=== PATIENT | female | born 1970 | race Caucasian/White ===

== ENCOUNTER 2020-11-29 04:19 | Day surgery (SDC) | payer OTHER ==
[2020-11-26 10:35] VITALS: BMI 25.6
[2020-11-29] MEDS ORDERED: PROPOFOL 20 ML ONE (11:44)
[2020-11-29] MEDS ORDERED: MIDAZOLAM HCL 2 MG/2 ML SINGLE DOSE VIAL ONE (11:44)
[2020-11-29 14:08] VITALS: TEMP 97.9
[2020-11-29 14:46] VITALS: BP 107/76; PULSE 60
[2020-11-29] MEDS ORDERED: ACETAMINOPHEN 325 MG TABLET (FP) PO PRN (15:06)
[2020-11-29] MEDS ORDERED: ONDANSETRON 4 MG/2 ML VIAL IVPUSH PRN (15:06)
[2020-11-29] MEDS ORDERED: LACTATED RINGERS SOLUTION 1,000 ML IV SCH (15:15)
== END 2020-11-29 15:57 | disposition home or self-care (01) ==
LOC: JASU-SURG 04:19
PROVIDERS: ATTEND Urology
PROC: 0TF3XZZ Fragmentation in Right Kidney Pelvis, External Approach (ICD-10-PCS; principal; 2020-11-29 12:00)
DX: N20.0 Calculus of kidney (principal)
CPT/HCPCS: 81025

== ENCOUNTER 2020-12-13 04:55 | Day surgery (SDC) | payer OTHER ==
[2020-12-10 08:31] VITALS: BMI 26.2
[2020-12-13] MEDS ORDERED: MIDAZOLAM HCL 2 MG/2 ML SINGLE DOSE VIAL ONE (15:12)
[2020-12-13] MEDS ORDERED: PROPOFOL 20 ML ONE (15:12)
[2020-12-13] MEDS ORDERED: ACETAMINOPHEN 325 MG TABLET (FP) PO PRN (15:43)
[2020-12-13] MEDS ORDERED: oxyCODONE HCL 5 MG TABLET PO PRN (15:43)
[2020-12-13] MEDS ORDERED: ONDANSETRON 4 MG/2 ML VIAL IVPUSH PRN (15:43)
[2020-12-13] MEDS ORDERED: LACTATED RINGERS SOLUTION 1,000 ML IV SCH (15:45)
[2020-12-13 17:42] VITALS: BP 130/84; PULSE 72; TEMP 98
== END 2020-12-13 17:10 | disposition home or self-care (01) ==
LOC: JASU-SURG 04:55
PROVIDERS: ATTEND Urology
PROC: 0TF4XZZ Fragmentation in Left Kidney Pelvis, External Approach (ICD-10-PCS; principal; 2020-12-13 13:00)
DX: N20.0 Calculus of kidney (principal)
CPT/HCPCS: 81025